=== PATIENT | female | born 1985 | race Caucasian/White ===

== ENCOUNTER 2017-02-04 03:31 | Emergency (ER) | payer MEDICAID, OTHER ==
[~2017-02-04] VITALS: Ht 160 cm; Wt 90.9 kg
[~2017-02-04 03:31] MED LIST: CIPR500T4 PO; HYDR-906 PO
[2017-02-04 03:37] VITALS: Ht 160 cm; Wt 90.9 kg
[2017-02-04] MEDS ORDERED: morphine 4 MG/ML VIAL IV STA (03:42)
[2017-02-04] MEDS ORDERED: ONDANSETRON 4 MG INJ IV STA (03:42)
[2017-02-04] MEDS ORDERED: SOD CHLORIDE 0.9% 1,000 ML IV STA (03:42)
[2017-02-04 04:02] LABS: URINE BLOOD (Dip) POC 2+ (NEGATIVE)
[2017-02-04 04:19] LABS: ADD SCAN DIFF NO
[2017-02-04 04:23] LABS: ABNORMAL IP MESSAGE 1; BASOPHILS % 0.2 % (0.0-2.0); EOSINOPHILS % 0.4 % (0.0-7.0); HEMATOCRIT 36.7 % (37.0-47.0); HEMOGLOBIN 11.7 g/dl (12.0-16.0); LYMPHOCYTES # 2.1 10^3/ul (0.8-2.9); LYMPHOCYTES % 26.4 % (15.0-51.0); MEAN CORPUSCULAR HEMOGLOBIN 26.4 pg (29.0-33.0); MEAN CORPUSCULAR HGB CONC 31.9 g/dl (32.0-37.0); MEAN CORPUSCULAR VOLUME 82.8 fl (82.0-101.0); MEAN PLATELET VOLUME 14.2 fl (7.4-10.4); MONOCYTE # 0.6 10^3/ul (0.3-0.9); MONOCYTES % 7.9 % (0.0-11.0); NEUTROPHIL # 5.3 10^3/ul (1.6-7.5); PLATELET COUNT 183 10^3/UL (140-415); RED BLOOD COUNT 4.43 10^6/ul (4.20-5.40); RED CELL DISTRIBUTION WIDTH 16.2 % (11.5-14.5); WHITE BLOOD COUNT 8.1 10^3/ul (4.8-10.8)
[2017-02-04 04:25] LABS: ADD UMIC YES; UR BLOOD (Dip) 2+ (NEGATIVE); UR CLARITY SLIGHTLY CLOUDY (CLEAR); UR COLOR DK. RED (YELLOW); UR GLUCOSE (Dip) NEGATIVE (NEGATIVE); UR KETONES (Dip) 2+ (NEGATIVE); UR LEUKOCYTE ESTERASE (Dip) 2+ (NEGATIVE); UR NITRITE (Dip) NEGATIVE (NEGATIVE); UR TOTAL PROTEIN (Dip) 2+ (NEGATIVE); UR UROBILINOGEN (Dip) 1.0 E.U./dL (0.1-1.0)
[2017-02-04 04:30] LABS: UR BILIRUBIN (Dip) NEGATIVE (NEGATIVE)
[2017-02-04 04:34] LABS: UR BACTERIA MODERATE /HPF (NONE SEEN); UR SQUAMOUS EPITHELIAL CELL MANY /HPF (FEW)
[2017-02-04 04:47] LABS: INR 1.04; PROTIME 13.6 Sec (12.2-14.2); PT RATIO 1.1
[2017-02-04 04:48] LABS: PARTIAL THROMBOPLASTIN TIME 30.3 Sec (25.0-35.0)
[2017-02-04 04:52] LABS: ALBUMIN 4.7 g/dl (3.3-4.9); ALBUMIN/GLOBULIN RATIO 1.88; BILIRUBIN,INDIRECT 0.3 mg/dl (0-1.1); BILIRUBIN,TOTAL 0.3 mg/dl (0.2-1.3); CALCIUM 10.2 mg/dl (8.4-10.2); CREATININE 0.46 mg/dl (0.44-1.00); POTASSIUM 4.1 mmol/L (3.5-5.1); TOTAL PROTEIN 7.2 g/dl (6.1-8.1)
--- NOTE | 2017-02-04 05:44 | ERA ---
ER Documentation Chief Complaint Date/Time DATE: 02/04/17 TIME: 05:42 Chief Complaint BIBA with c/o abdominal pain with n/v, blood tinge on vomit (JOHN HERNANDEZ) HPI 31-year-old female brought in by ambulance with complaints of abdominal pain nausea vomiting. 3 episodes of vomiting which were nonbilious. Last episode of blood streaks in it for the patient. No fevers no chills. No diarrhea. No other current complaints. Pain is mild to moderate intensity and nonlocalizing diffuse with no exacerbating or alleviating factors. No sick contacts. Gastric bypass surgery in November. (JOHN HERNANDEZ) ROS All systems reviewed and are negative except as per history of present illness. (JOHN HERNANDEZ) Medications Home Meds Active Scripts Ondansetron (Ondansetron Odt) 4 Mg Tab.rapdis, 4 MG PO Q6H Y for NAUSEA AND/OR VOMITING, #10 TAB Prov:JOHN HERNANDEZ 02/04/17 Hydrocodone/Acetaminophen ([facility] 10-325 Tablet) 1 Each Tablet, 1 TAB PO Q6H Y for PAIN, #20 TAB Prov:JOHN HERNANDEZ 02/04/17 Ciprofloxacin Hcl* (Ciprofloxacin Hcl*) 500 Mg Tablet, 500 MG PO BID for 5 Days , TAB Prov:JOHN HERNANDEZ 02/04/17 Hydrocodone Bit-Acetaminophen ([facility]) 5-325 Mg Tablet, 1 TAB PO Q8 Y for PAIN, # 7 TAB Prov:DOUGIE AGUILAR DO 07/13/15 Ciprofloxacin Hcl* (Ciprofloxacin Hcl*) 500 Mg Tablet, 500 MG PO BID, #14 TAB Prov:DOUGIE AGUILAR DO 07/13/15 Allergies Allergies: Coded Allergies: No Known Allergy (Unverified , 07/13/15) PMhx/Soc History of Surgery: Yes (Lap band November 2016) Anesthesia Reaction: No Hx Neurological Disorder: No Hx Respiratory Disorders: No Hx Cardiac Disorders: No Hx Psychiatric Problems: No Hx Miscellaneous Medical Probl: Yes (right ovarian cyst) Hx Alcohol Use: No Hx Substance Use: No Hx Tobacco Use: No Smoking Status: Never smoker (JOHN HERNANDEZ) Physical Exam Vitals Vital Signs Date Time Temp Pulse Resp B/P Pulse Ox O2 Delivery O2 Flow Rate FiO2 02/04/17 03:37 97.5 69 18 112/70 99 (GINGER HURTADO MD) Physical Exam Const: [] Head: Atraumatic Eyes: Normal Conjunctiva ENT: Normal External Ears, Nose and Mouth. Neck: Full range of motion..~ No meningismus. Resp: Clear to auscultation bilaterally Cardio: Regular rate and rhythm, no murmurs Abd: Soft, non tender, non distended. Normal bowel sounds Skin: No petechiae or rashes Back: No midline or flank tenderness Ext: No cyanosis, or edema Neur: Awake and alert Psych: Normal Mood and Affect (JOHN HERNANDEZ) Result Diagram: 02/04/175 02/04/17 034 Results 24 hrs Laboratory Tests Test 02/04/17 03:45 02/04/17 03:55 02/04/17 04:05 White Blood Count 8.110^3/ul Red Blood Count 4.4310^6/ul Hemoglobin 11.7g/dl Hematocrit 36.7% Mean Corpuscular Volume 82.8fl Mean Corpuscular Hemoglobin 26.4pg Mean Corpuscular Hemoglobin Concent 31.9g/dl Red Cell Distribution Width 16.2% Platelet Count 73328^3/UL Mean Platelet Volume 14.2fl Neutrophils % 65.0% Lymphocytes % 26.4% Monocytes % 7.9% Eosinophils % 0.4% Basophils % 0.2% Nucleated Red Blood Cells % 0.0/100WBC Neutrophils # 5.310^3/ul Lymphocytes # 2.110^3/ul Monocytes # 0.610^3/ul Eosinophils # 0.010^3/ul Basophils # 0.010^3/ul Nucleated Red Blood Cells # 0.010^3/ul Prothrombin Time 13.6Sec Prothrombin Time Ratio 1.1 INR International Normalized Ratio 1.04 Activated Partial Thromboplast Time 30.3Sec Sodium Level 142mmol/L Potassium Level 4.1mmol/L Chloride Level 100mmol/L Carbon Dioxide Level 26mmol/L Anion Gap 20 Blood Urea Nitrogen 8mg/dl Creatinine 0.46mg/dl Glucose Level 82mg/dl Calcium Level 10.2mg/dl Total Bilirubin 0.3mg/dl Direct Bilirubin 0.00mg/dl Indirect Bilirubin 0.3mg/dl Aspartate Amino Transf (AST/SGOT) 29IU/L Alanine Aminotransferase (ALT/SGPT) 48IU/L Alkaline Phosphatase 78IU/L Total Protein 7.2g/dl Albumin 4.7g/dl Globulin 2.50g/dl Albumin/Globulin Ratio 1.88 Lipase 42U/L Urine Color DK. RED Urine Clarity SLIGHTLY CLOUDY Urine pH 6.0 Urine Specific [place] >=1.030 Urine Ketones 2+ Urine Nitrite NEGATIVE Urine Bilirubin NEGATIVE Urine Urobilinogen 1.0 E.U./dL Urine Leukocyte Esterase 2+ Urine Microscopic RBC 10-25/HPF Urine Microscopic WBC >50/HPF Urine Squamous Epithelial Cells MANY/HPF Urine Bacteria MODERATE/HPF Urine Hemoglobin 2+ Urine Glucose NEGATIVE% Urine Total Protein 2+ Bedside Urine pH (LAB) 5.5 Bedside Urine Protein (LAB) 2+ Bedside Urine Glucose (UA) Negative Bedside Urine Ketones (LAB) 4+ Bedside Urine Blood 2+ Bedside Urine Nitrite (LAB) Negative Bedside Urine Leukocyte Esterase (L 3+ Current Medications Medications (Trade) Dose Ordered Sig/Finesse Route PRN Reason Start Time Stop Time Status Last Admin Dose Admin Sodium Chloride (NS) 1,000 ml @ 1,000 mls/hr Q1H STAT IV 02/04/17 03:42 02/04/17 04:41 DC 02/04/17 03:53 Morphine Sulfate (morphine) 4 mg ONCE STAT IV 02/04/17 03:42 02/04/17 03:43 DC 02/04/17 03:53 Ondansetron HCl (Zofran Inj) 4 mg ONCE STAT IV 02/04/17 03:42 02/04/17 03:44 DC 02/04/17 03:52 IV Flush 10 ml 10 ml STK-MED ONCE .ROUTE 02/04/17 05:57 02/04/17 05:58 DC 02/04/17 05:59 Sodium Chloride (NS) 100 ml @ ud STK-MED ONCE .ROUTE 02/04/17 05:57 02/04/17 05:58 DC 02/04/17 06:00 Iohexol (Omnipaque 300mg/ ml) 150 ml STK-MED ONCE .ROUTE 02/04/17 05:57 02/04/17 05:58 DC 02/04/17 06:00 (GINGER HURTADO MD) Procedures/[facility] Medical decision-making: Patient comes in for abdominal pain vomiting. At this point clinically stable for outpatient management. Discharge home with Zantac and Zofran. Return 8 hours for serial abdominal exams. Follow-up with PCP otherwise. (JOHN HERNANDEZ) Patient was signed out to me pending a CT scan result of the abdomen and pelvis. CT abdomen and pelvis did not show any acute abnormalities. Her urinalysis showed possible evidence of infection. However I spoke with the patient and she is completely asymptomatic and does not have any urinary tract symptoms. She feels much better at this time. She will be discharged with the prescription and discharge papers written by Dr. Hernandez. Return precautions were discussed. Patient was discharged in stable condition. (GINGER HURTADO MD) Departure Diagnosis: Primary Impression: Abdominal pain Qualified Code: R10.9 - Abdominal pain, unspecified location Condition: Stable JOHN HERNANDEZ Feb 04, 2017 05:44 GINGER HURTADO MD Feb 04, 2017 07:05
[2017-02-04] MEDS ORDERED: ONDA4TAB14 PO (05:52)
[2017-02-04] MEDS ORDERED: CIPR500T4 PO (05:52)
[2017-02-04] MEDS ORDERED: HYDR-902 PO (05:52)
[2017-02-04] MEDS ORDERED: SOD CHLORIDE 0.9% 100 ML ONE (05:57)
[2017-02-04] MEDS ORDERED: IOHEXOL 300MG/ML 150 ML BTL ONE (05:57)
--- NOTE | 2017-02-04 06:06 | RADRPT ---
PROCEDURE: CT Abdomen and pelvis with contrast. CLINICAL INDICATION: Abdominal Pain TECHNIQUE: CT scan of the abdomen and pelvis with contrast was performed on a multidetector high-r esolution CT scan. The patient was scanned following the uncomplicated intravenous administration o f 100 cc Omnipaque 300. Coronal and sagittal reformatted images were obtained from the axial source images. Standard CT of the abdomen pelvis with contrast protocols were performed. The total exam CTDI equals 21.79 mGy and the total exam DLP equals 1000 168.56 mGy-cm. One or more of the following dose reduction techniques were used: - Automated exposure control. - Adjustment of the mA and/or kV according to patient size. Use of iterative reconstruction technique. COMPARISON: CT abdomen pelvis 07/13/2015 FINDINGS: During interval the patient has undergone gastric surgery with the stomach otherwise unremarkable. The small bowel , large bowel and appendix are unremarkable. Negative for intra-abdominal free air, free fluid, abscesses or lymphadenopathy. The kidneys are normal in size without calcified renal calculi hydronephrosis or intra renal masses bilaterally. The inner bladder is partially contracted but otherwise unremarkable. There is hepatic fatty infiltration with small focal fatty sparing involving the anterior subcapsula r right lobe of the liver adjacent to the ligamentum teres. No hepatic masses. The gallbladder is unremarkable without biliary ductal dilation. No change in the small 1.4 cm low density left adrenal gland mass likely adenoma. The adrenal gland s are otherwise unremarkable. The pancreas and spleen are unremarkable. The uterus is anteverted and anteflexed with a 2.4 cm rounded enhancing left uterine body lesion con sistent with a leiomyoma. Again noted is a 3 cm left ovarian cyst. No other adnexal masses. The aorta is unremarkable. There are parenchymal changes at the lung bases consistent with atelectas is and scarring. In the subcutaneous right lower quadrant of the abdomen is a elongated area of increased density con sistent with scarring likely from previous abdominal surgery. Remainder of the abdominal wall is unr emarkable. There are mild degenerative changes present but no evidence of acute osseous findings or osteoblasti c/osteolytic lesions. IMPRESSION: 1. Interval the gastric surgery of the stomach otherwise unremarkable. 2. No change in the 1.4 cm left adrenal gland low-density likely an adenoma. 3. 2.4 cm rounded enhancing left uterine body lesion consistent with a leiomyoma. 4. No change in 3 cm left ovarian cyst. 5. No evidence of gastrointestinal disease or calcified renal calculi/obstructive uropathy. 6. Negative for intra-abdominal free air fluid abscesses or lymphadenopathy. RPTAT:AAJJ Josh Castro Physician Date Time Electronically viewed and signed by Josh Castro, Physician on 02/04/2017 06:05 BM/
[2017-02-04 07:15] VITALS: BP 105/52; PULSE 71; RESP 18
== END 2017-02-04 07:23 | disposition home or self-care (01) ==
LOC: E/R 03:31
DX: R10.84 Generalized abdominal pain (principal); R11.2 Nausea with vomiting, unspecified
CPT/HCPCS: 36415; 74177; 80053; 81001; 83690; 85025; 85610; 85730; 96374; 96375; J2270; J2405; J7030; Q9967; Z7502; Z7610; 81003